=== PATIENT | male | born 1935 | race Caucasian/White ===

== ENCOUNTER 2017-09-26 05:54 | Day surgery (SDC) | payer MEDICARE, OTHER ==
[2017-09-25 08:42] LABS: BASOPHILS 0.5 % (0-2); EOSINOPHILS 4.5 % (0-7); HEMATOCRIT 45.5 % (42.0-54.0); HEMOGLOBIN 14.7 g/dL (13.5-17.5); IMMATURE GRANULOCYTES 0.5 % (0-5); MCH 31.1 pg (26.0-34.0); MCHC 32.3 g/dL (31.0-37.0); MCV 96.2 fL (80.0-100.0); MEAN PLATELET VOLUME 11.1 fL (7.4-10.4); MONOCYTES 8.6 % (2-11); NEUTROPHILS 49.9 % (40-80); RBC 4.73 10x6/uL (4.20-6.10)
[2017-09-25 08:46] LABS: PLATELET COUNT 227 10x3/uL (130-400)
[2017-09-25 09:05] LABS: CALC OSMOLALITY 275 mosm/kg (275-300); CALCIUM 8.8 mg/dL (8.5-10.1); CARBON DIOXIDE 27.9 mmol/L (21.0-32.0); CHLORIDE - SERUM 103 mmol/L (98-107); GLUCOSE 104 mg/dL (74-106); POTASSIUM - SERUM 4.4 mmol/L (3.5-5.1); SODIUM 137 mmol/L (136-145); UREA NITROGEN 19 mg/dL (7-18); eGFR NON AFRICAN AMERICAN 76 mL/min (90-120)
[~2017-09-26] VITALS: Ht 175.3 cm; Wt 95.5 kg
[~2017-09-26 05:54] MED LIST: AMBIEN10 MG PO; BENADRYL INJ50 MG/ML PO; BENADRYL25 MG PO; COUMADIN5 MG PO; COUMADIN6 MG PO; DULCOLAX10 MG/SUPP RC; ELAVIL10 MG PO; ELAVIL25 MG PO; FLOMAX0.4 MG PO; LUNESTA2 M1 PO; MIRALAX17 GM PO; MS CONTIN30 MG PO; NORCO 10/325 TA1 TA1 PO; NORCO 7.5/325 T1 TA1 PO; OMEPRAZOLE40 MG PO; ONDANSETRON4 MG/2 M3 PO; OXYCODONE HCL10 MG PO; PRILOSEC20 MG PO; PROSCAR5 MG PO; PROTONIX40 MG PO; ROXICODONE5 MG PO; SALINE FLUSH10 ML IV; SENOKOT-S TABLE1 TAB PO; ZOCOR20 MG PO; ZOFRAN4 MG PO
[2017-09-26 07:21] VITALS: BP 120/67; BMI 31.0
[2017-09-26 07:38] VITALS: BP 120/67; Ht 175.3 cm; Wt 95.5 kg
[2017-09-26] MEDS ORDERED: HYDROCODONE-APA1 TAB PO (09:28)
--- NOTE | 2017-09-26 10:52 | NUR ---
I DC WITH CATHER TIP INTACT
--- NOTE | 2017-10-14 17:58 | OP ---
PATIENT NAME: CHIQUI PETERSON MEDICAL RECORD: [id number] :39 LOCATION:D.OPS ADMISSION DATE: SURGEON: JANES VANEGAS MD DATE OF OPERATION: 09/26/2017 PREOPERATIVE DIAGNOSIS: Carpal tunnel syndrome of the right hand. POSTOPERATIVE DIAGNOSIS: Carpal tunnel syndrome of the right hand. PROCEDURE: Right carpal tunnel release. SURGEON: Janes Vanegas MD ANESTHESIA: General. INTRAOPERATIVE COMPLICATIONS: None. SUMMARY OF PATHOLOGIC FINDINGS: The patient had a very tight transverse carpal ligament consistent with the preoperative diagnosis. OPERATIVE SUMMARY IN DETAIL: After obtaining the appropriate preoperative orthopedic surgery consent as well as anesthetic consultation, evaluation and clearance, the patient was brought to the operating room and placed on the operating table in supine position. After general laryngeal mask was administered, tourniquet was placed about the proximal aspect of the right upper extremity. Right upper extremity was then prepped and draped in routine sterile fashion. The arm was elevated and exsanguinated, tourniquet inflated to 250 mmHg. Routine proximal palmar incision was made in line with the fourth metacarpal ray and taken down to the level of transverse carpal ligament. This was identified. It was slightly incised to reveal the median nerve. The median nerve was then covered with the [place] elevator and protected throughout the case. Under direct visualization, the entire transverse carpal ligament was incised to the proximal wrist crease. Having completed this, the wound was copiously irrigated and closed with a combination of simple and mattress style 4-0 Prolenes. The area was locally infiltrated with 0.25% Marcaine plain. Sterile dressings were applied. Tourniquet was deflated. The patient was awakened and taken to recovery room in stable condition. All final needle and sponge counts were correct. TRANSINT:[id number] Voice Confirmation ID: [id number] DOCUMENT ID: [id number] JANES VANEGAS MD at 1758 CC: [id number] DICTATION DATE: 10/14/17 1527 QUILL STRIPPER: 10/14/17 1623 [facility] 09/26/17 [place] [id number]
== END 2017-09-26 11:04 | disposition home or self-care (01) ==
LOC: D.OPS 05:54 → D.PAN 07:30 → D.OPS 07:30 → D.PAN 09:00 → D.OPS 09:00 → D.PAN 10:00 → D.OPS 11:04
PROVIDERS: Anesthesiology
DX: G56.01 Carpal tunnel syndrome, right upper limb (principal); K21.9 Gastro-esophageal reflux disease without esophagitis; Z01.812 Encounter for preprocedural laboratory examination

== ENCOUNTER 2018-06-14 14:36 | Emergency (ER) | payer MEDICARE, OTHER ==
[~2018-06-14] VITALS: Ht 175.3 cm; Wt 95.5 kg
[~2018-06-14 14:36] MED LIST changes: +HYDROCODONE-APA1 TAB PO
[2018-06-14 14:39] VITALS: Ht 175.3 cm; Wt 95.5 kg
[2018-06-14] MEDS ORDERED: HYDROCODON-ACE1 EAC7 PO (16:11)
[2018-06-14 16:29] VITALS: BP 122/84
== END 2018-06-14 16:31 | disposition home or self-care (01) ==
LOC: D.ER 14:36
DX: S09.90XA Unspecified injury of head, initial encounter (principal); W18.30XA Fall on same level, unspecified, initial encounter; Y93.89 Activity, other specified; Y92.019 Unspecified place in single-family (private) house as the place of occurrence of the external cause